=== PATIENT | male | born 1970 | race Caucasian/White ===

== ENCOUNTER 2017-10-18 22:26 | Emergency (ER) | payer BC ==
[2017-10-19] MEDS ORDERED: MORPHINE SULFATE 10 MG/ML INJ IV PRN (00:07)
[2017-10-19] MEDS ORDERED: LIDOCAINE 5% (700 MG) TRANSDERMAL ADH..PATCH TP ONE (00:07)
[2017-10-19] MEDS ORDERED: HYDROMORPHONE HCL INJ/PF 2 MG/ML AMPULE IV ONE ×2 (00:08→02:25)
[2017-10-19] MEDS ORDERED: PROCHLORPERAZINE EDISYLATE INJ 10 MG/2 ML VIAL IV ONE (00:08)
[2017-10-19] MEDS ORDERED: NORMAL SALINE 1000 ML 1,000 ML IV ONE (00:08)
--- NOTE | 2017-10-19 00:43 | ER Document Report ---
ED General - General Chief Complaint: Arm Pain Stated Complaint: NECK/ARM PAIN Time Seen by Provider: 10/18/17 23:30 Notes: Patient is a 47-year-old male with a past medical history of diabetes, hypertension, hyperlipidemia who presents with acute onset of left-sided neck pain radiating to his left upper extremity. Patient states that this started abruptly while he was sitting on the couch and has been constant since that time. He describes it as a severe, constant, stabbing pain to the affected area which starts at the base of his left occiput and extends into the left sternocleidomastoid region and into the left shoulder. He denies any associated chest pain or shortness of breath. No nausea, vomiting or diaphoresis. He notes that he had a brief episode similar to this 1 week ago, was treated with a dose of steroids was unable to complete the course due to causing severe hyperglycemia. Patient reports that that episode was much less intense and resolved much more rapidly. He has not seen his primary doctor regarding today's concerns. Nothing improves or worsens his symptoms. TRAVEL OUTSIDE OF THE [place] IN LAST 30 DAYS: No - Related Data Allergies/Adverse Reactions: allopurinol Allergy (Verified 10/18/17 22:46) Past Medical History - General Information source: Patient - Social History Smoking Status: Never Smoker Frequency of alcohol use: None Drug Abuse: None Lives with: Spouse/Significant other Family History: Reviewed & Not Pertinent Review of Systems - Review of Systems Notes: Constitutional: Negative for fever. HENT: Negative for sore throat. Eyes: Negative for visual changes. Cardiovascular: Negative for chest pain. Respiratory: Negative for shortness of breath. Gastrointestinal: Negative for abdominal pain, vomiting or diarrhea. Genitourinary: Negative for dysuria. Musculoskeletal: Positive for left neck pain and left arm pain Skin: Negative for rash. Neurological: Negative for headaches, weakness or numbness. 10 point ROS negative except as marked above and in HPI. Physical Exam - Vital signs Vitals: Resp Pulse Ox 17 99 10/18/17 23:26 10/18/17 23:26 Interpretation: Tachycardic Notes: PHYSICAL EXAMINATION: GENERAL: Appears uncomfortable but in no acute distress HEAD: Atraumatic, normocephalic. EYES: Pupils equal round and reactive to light, extraocular movements intact, sclera anicteric, conjunctiva are normal. ENT: nares patent, oropharynx clear without exudates. Moist mucous membranes. NECK: Normal range of motion, supple without lymphadenopathy LUNGS: Breath sounds clear to auscultation bilaterally and equal. No wheezes rales or rhonchi. HEART: Regular rate and rhythm without murmurs ABDOMEN: Soft, nontender, normoactive bowel sounds. No guarding, no rebound. No masses appreciated. EXTREMITIES: Normal range of motion, no pitting or edema. No cyanosis. NEUROLOGICAL: Face symmetric. Tongue protrudes midline. Extraocular motions intact. Pupils are 2 mm and equally reactive. Normal speech, normal gait. 5 out of 5 strength in both the distal and proximal upper and lower extremities bilaterally. Sensation is grossly intact throughout. Finger to nose testing normal. Pronator drift normal. PSYCH: Normal mood, normal affect. SKIN: Warm, Dry, normal turgor, no rashes or lesions noted. Course - Re-evaluation Re-evalutation: 10/19/17 00:37 Patient presents with an acute onset of left-sided neck and right arm pain. I am somewhat concerned that this is not musculoskeletal as patient does not report pain is related to movement and does not have exacerbation of his pain with range of motion of the left upper extremity. ACS is on the differential although again patient denies any chest pain or shortness of breath. EKG shows tachycardia but no ischemic changes. No diaphoresis, vomiting, or anginal equivalent symptoms to suggest this diagnosis. He has no cardiac history. PE and aortic dissection likewise seem unlikely given the absence of any shortness of breath or chest pain. A carotid artery dissection would be on the differential given the acute onset of the pain as well as the location of the pain although he does not have any associated neurologic deficits. Will proceed with CT of the neck, labs including a troponin assay, and reassess patient 10/19/17 02:33 CTA of the neck is negative for any evidence of dissection although patient continues to have pain to the neck only. Will repeat a troponin and if this remains normal plan for discharge 10/19/17 04:08 Patient's pain is overall improved. Repeat troponin normal. At this time I suspect likely musculoskeletal origin versus nerve root impingement for the etiology of patient's pain given reassuring evaluation. At this time will discharge with return precautions and follow-up recommendations. Verbal discharge instructions given a the bedside and opportunity for questions given. Medication warnings reviewed. Patient is in agreement with this plan and has verbalized understanding of return precautions and the need for primary care follow-up in the next 24-72 hours. - Vital Signs Vital signs: Temp Pulse Resp BP Pulse Ox 98.6 F 16 173/107 H 95 10/18/17 23:53 10/19/17 03:14 10/19/17 03:14 10/19/17 03:14 - Laboratory Result Diagrams: 10/19/17 00:40 10/19/17 00:40 Laboratory results interpreted by me: 10/19/17 00:40 Glucose 317 H - Diagnostic Test Radiology reviewed: Image reviewed, Reports reviewed Radiology results interpreted by me: 10/19/17 04:09 Chest x-ray: No acute infiltrate or pneumothorax - EKG Interpretation by Me Additional EKG results interpreted by me: 10/19/17 00:43 Sinus tachycardia. Rate 104. No ST elevations or depressions. QTC is 463. Discharge - Discharge Clinical Impression: Neck pain on left side, Left arm pain, Essential hypertension Condition: Good Disposition: HOME, SELF-CARE Additional Instructions: The exact cause of your neck pain is unclear but is likely due to the muscles in your neck. The CT scan of the arteries and veins of your neck is normal. Your EKG and labs do not suggest a heart attack as the cause of your pain. Please apply topical lidocaine to the affected area as needed, take Tylenol 1000 mg every 6 hours, and apply the topical Voltaren gel with which you have been sent home for pain. You may also apply heat to the area. Return if you develop weakness, numbness, vomiting, chest pain, pass out, or have any other symptoms that are worrisome to you. Prescriptions: Diclofenac Sodium [Voltaren] 100 gm TP TID #100 gel..gram. Referrals: GEETA BENSON MD [Primary Care Provider] - Follow up as needed
[2017-10-19 01:03] LABS: ABSOLUTE EOSINOPHILS # (AUTO) 0.1 10^3/uL (0.0-0.6); ABSOLUTE LYMPHOCYTES (AUTO) 1.7 10^3/uL (0.5-4.7); ABSOLUTE MONOCYTES (AUTO) 0.5 10^3/uL (0.1-1.4); ABSOLUTE NEUT (AUTO) 7.5 10^3/uL (1.7-8.2); BASOPHILS % (AUTO) 0.3 % (0-2); EOSINOPHILS % (AUTO) 0.8 % (0-6); HEMOGLOBIN 14.5 g/dL (13.5-17.0); MEAN CORPUSCULAR HEMOGLOBIN 32.2 pg (27.0-33.4); MEAN CORPUSCULAR HGB CONC 35.3 g/dL (32.0-36.0); MEAN CORPUSCULAR VOLUME 91 fl (80-97); MONOCYTES % (AUTO) 5.4 % (3-13); PLATELET COUNT 249 10^3/uL (150-450); RED CELL DISTRIBUTION WIDTH 13.1 % (11.5-14.0); SEGMENTED NEUTROPHILS % (AUTO) 76.5 % (42-78); TOTAL CELLS COUNTED % (AUTO) 100 %; WHITE BLOOD COUNT 9.8 10^3/uL (4.0-10.5)
[2017-10-19 01:21] LABS: ANION GAP 15 (5-19); BLOOD UREA NITROGEN 17 mg/dL (7-20); CALCIUM 10.2 mg/dL (8.4-10.2); CARBON DIOXIDE 26 mmol/L (22-30); CHLORIDE 98 mmol/L (98-107); GLUCOSE 317 mg/dL (75-110); POTASSIUM 4.2 mmol/L (3.6-5.0); SODIUM 139.3 mmol/L (137-145)
--- NOTE | 2017-10-19 02:14 | RADIOLOGY REPORT (SQ) ---
EXAM DESCRIPTION: CHEST SINGLE VIEW CLINICAL HISTORY: sob COMPARISON: None. FINDINGS: Single frontal view of the chest. The cardiomediastinal silhouette has normal size and contour. No consolidation, pneumothorax, or pleural effusion. No displaced rib fractures identified. Upper abdominal soft tissues are unremarkable. Low lung volumes. Leads overlie the chest. IMPRESSION: 1. No acute pulmonary process identified.
--- NOTE | 2017-10-19 02:29 | RADIOLOGY REPORT (SQ) ---
EXAM DESCRIPTION: CT Angiography Neck w/ Contrast CLINICAL HISTORY: Vomiting. Neck pain.; COMPARISON: None available TECHNIQUE: CT of the neck obtained following the uncomplicated intravenous administration of 70 mL Isovue-370. 3-D/MIP reformatted images available. FINDINGS: CTA neck: Right carotid: The origin of the right common carotid artery is widely patent. The right common carotid artery is widely patent without evidence of dissection. There is 0% stenosis at the origin of the right internal carotid artery by NASCET criteria. No evidence of dissection or aneurysm. Left carotid: The origin of the left common carotid artery is widely patent. The left common carotid artery is widely patent without evidence of dissection. There is a 0 % stenosis of the left internal carotid artery by NASCET criteria. No evidence of dissection or aneurysm. The vertebral arteries are patent at their origins. Codominant vertebral arteries. No evidence of flow-limiting stenosis, aneurysm, or dissection. Lung apices demonstrate no pneumothorax. No abnormalities of visualized thyroid gland. No cervical lymphadenopathy. No gross abnormality in the neck soft tissues or orbits. No acute abnormality of the facial bones. The mastoid air cells are well aerated. Mucosal thickening of the left maxillary sinus. Visualized intracranial contents demonstrate no definite abnormalities. DLP: 598.03 mGy-cm IMPRESSION: 1. No evidence of stenosis, dissection, or occlusion of the carotid or vertebral arteries. This exam was performed according to our departmental dose-optimization program, which includes automated exposure control, adjustment of the mA and/or kV according to patient size and/or use of iterative reconstruction technique.
[2017-10-19] MEDS ORDERED: KETOROLAC TROMETHAMINE INJ/PF 30 MG/1 ML SDV IV ONE (02:35)
[2017-10-19 04:20] VITALS: BP 158/96
--- NOTE | 2017-10-19 11:57 | EKG REPORT ---
SEVERITY:- BORDERLINE ECG - SINUS TACHYCARDIA PROBABLE LEFT ATRIAL ABNORMALITY : Confirmed by: Lizzy Kelly MD 19-Oct-2017 11:56:56
--- NOTE | 2017-10-21 19:01 | EKG REPORT ---
SEVERITY:- BORDERLINE ECG - SINUS TACHYCARDIA PROBABLE LEFT ATRIAL ABNORMALITY : Confirmed by: Sabas Henry MD 21-Oct-2017 19:00:26
== END 2017-10-19 04:27 | disposition home or self-care (01) ==
LOC: ER 22:26
DX: M54.2 Cervicalgia (principal); M79.602 Pain in left arm; R51 Headache; M25.512 Pain in left shoulder; I10 Essential (primary) hypertension; R00.0 Tachycardia, unspecified; E11.9 Type 2 diabetes mellitus without complications; Z88.8 Allergy status to other drugs, medicaments and biological substances
CPT/HCPCS: 96376; 99284; 96361; 96374; 96375; 36415; 85025; 80048; 84484; 71045; 70498; 93005; 93010; J1885; J1170; J0780; J7030

== ENCOUNTER → 2018-03-31 | Outpatient (CLI) | payer BC ==
--- NOTE | 2018-04-01 19:43 | XCELERA REPORT ---
[address] [address] Transthoracic Echocardiogram Report Name: CRYSTAL PATTERSON Age: 47 yrs Gender: Male : 1970 Patient Status: Outpatient Patient Location: Study Date: 03/31/2018 08:10 AM Procedure: A two-dimensional transthoracic echocardiogram with color flow and Doppler was performed. The study was technically difficult with many images being suboptimal in quality. Images were not obtained from all of the standard acoustic windows due to the limited scope of the study. Reason For Study: SOB History: Shortness of breath. Ordering Physician: LAW MORGAN Performed By: Melissa Daniel Interpretation Summary A two-dimensional transthoracic echocardiogram with color flow and Doppler was performed. The left ventricle is normal in size. There is normal left ventricular wall thickness. LV EF is 65% Left ventricular systolic function is normal. Doppler measurements suggest normal left ventricular diastolic function The left ventricular wall motion is normal. There is no thrombus. The right ventricle is not well visualized secondary to technical limitations The left atrial size is normal. There is no evidence of mitral valve prolapse. There is no mitral valve stenosis. There is no mitral regurgitation noted. There is no aortic valve stenosis There is no LVOT obstruction. No aortic regurgitation is present. There is no tricuspid stenosis. No tricuspid regurgitation. Unable to calculate RVSP due to insufficient TR jet. There is no pericardial effusion. MMode/2D Measurements & Calculations RVDd: 3.1 cm LVIDd: 5.0 cm FS: 37.2 % Ao root diam: IVSd: 0.99 cm LVIDs: 3.1 cm EDV(Teich): 2.9 cm LVPWd: 0.97 cm 116.3 ml Ao root area: ESV(Teich): 6.8 cm2 38.5 ml EF(Teich): 66.9 % EDV(MOD-sp4): SV(MOD-sp4): 110.5 ml 77.4 ml ESV(MOD-sp4): 33.1 ml EF(MOD-sp4): 70.0 % Doppler Measurements & Calculations MV E max gaby: MV dec slope: Ao V2 max: LV V1 max P.4 cm/sec 253.3 cm/sec2 112.3 cm/sec 4.8 mmHg MV A max gaby: MV dec time: Ao max PG: LV V1 max: 64.2 cm/sec 0.31 sec 5.0 mmHg 109.6 cm/sec MV E/A: 1.2 PA V2 max: 148.2 cm/sec PA max P.8 mmHg Left Ventricle The left ventricle is normal in size. There is normal left ventricular wall thickness. LV EF is 65%. Left ventricular systolic function is normal. Doppler measurements suggest normal left ventricular diastolic function. The left ventricular wall motion is normal. There is no thrombus. Right Ventricle The right ventricle is not well visualized secondary to technical limitations. Atria The right atrium is normal. The left atrial size is normal. Mitral Valve There is no evidence of mitral valve prolapse. There is no vegetation seen on the mitral valve. There is no mitral valve stenosis. There is no mitral regurgitation noted. Aortic Valve There is no aortic valvular vegetation. There is no aortic valve stenosis. There is no LVOT obstruction. No aortic regurgitation is present. Tricuspid Valve There is no tricuspid stenosis. No tricuspid regurgitation. Unable to calculate RVSP due to insufficient TR jet. Pulmonic Valve There is no pulmonic valvular stenosis. There is no pulmonic valvular regurgitation. Great Vessels The aortic root is not well visualized. Effusions There is no pericardial effusion. : LAW MORGAN > Lizzy Kelly
== END ==
LOC: SP 08:04
PROVIDERS: ATTEND Family Medicine Geriatric Medicine
DX: R06.02 Shortness of breath (principal)
CPT/HCPCS: 93306

== ENCOUNTER → 2018-04-06 | Outpatient (CLI) | payer BC ==
[2018-04-06 10:10] LABS: ABSOLUTE EOSINOPHILS # (AUTO) 0.1 10^3/uL (0.0-0.6); ABSOLUTE LYMPHOCYTES (AUTO) 1.9 10^3/uL (0.5-4.7); ABSOLUTE MONOCYTES (AUTO) 0.5 10^3/uL (0.1-1.4); ABSOLUTE NEUT (AUTO) 4.6 10^3/uL (1.7-8.2); BASOPHILS % (AUTO) 0.3 % (0-2); EOSINOPHILS % (AUTO) 1.4 % (0-6); HEMATOCRIT 45.3 % (37.9-51.0); HEMOGLOBIN 15.7 g/dL (13.5-17.0); LYMPHOCYTES % (AUTO) 26.4 % (13-45); MEAN CORPUSCULAR HEMOGLOBIN 31.5 pg (27.0-33.4); MEAN CORPUSCULAR HGB CONC 34.6 g/dL (32.0-36.0); MEAN CORPUSCULAR VOLUME 91 fl (80-97); MONOCYTES % (AUTO) 6.6 % (3-13); PLATELET COUNT 235 10^3/uL (150-450); RED BLOOD COUNT 4.98 10^6/uL (4.35-5.55); RED CELL DISTRIBUTION WIDTH 13.7 % (11.5-14.0); SEGMENTED NEUTROPHILS % (AUTO) 65.3 % (42-78); TOTAL CELLS COUNTED % (AUTO) 100 %; WHITE BLOOD COUNT 7.1 10^3/uL (4.0-10.5)
[2018-04-06 10:32] LABS: ALANINE AMINOTRANSFERASE 37 U/L (21-72); ALBUMIN 4.5 g/dL (3.5-5.0); ALKALINE PHOSPHATASE 78 U/L (38-126); ANION GAP 14 (5-19); ASPARTATE AMINO TRANSFERASE 31 U/L (17-59); BILIRUBIN,DIRECT 0.3 mg/dL (0.0-0.4); BILIRUBIN,TOTAL 0.3 mg/dL (0.2-1.3); BLOOD UREA NITROGEN 20 mg/dL (7-20); CALCIUM 9.8 mg/dL (8.4-10.2); CARBON DIOXIDE 26 mmol/L (22-30); CHLORIDE 107 mmol/L (98-107); CHOLESTEROL 137.36 mg/dL (0-200); GLUCOSE 120 mg/dL (75-110); POTASSIUM 4.3 mmol/L (3.6-5.0); SODIUM 147.2 mmol/L (137-145); TOTAL PROTEIN 7.8 g/dL (6.3-8.2); TRIGLYCERIDES 234 mg/dL (<150); URIC ACID 5.9 mg/dL (3.5-8.5)
[2018-04-06 10:43] LABS: DIRECT LDL 82 mg/dL (<100)
[2018-04-06 10:46] LABS: VLDL CHOLESTEROL 46.8 mg/dL (10-31)
== END ==
LOC: OD 08:36
PROVIDERS: ATTEND Family Medicine Geriatric Medicine
DX: E11.9 Type 2 diabetes mellitus without complications (principal); E78.5 Hyperlipidemia, unspecified; E55.9 Vitamin D deficiency, unspecified; I10 Essential (primary) hypertension; E66.9 Obesity, unspecified
CPT/HCPCS: 36415; 80053; 80061; 82043; 82306; 82570; 83036; 84443; 84550; 85025

== ENCOUNTER → 2018-07-06 | Outpatient (CLI) | payer BC | LOC: OD 12:43 | PROVIDERS: ATTEND Internal Medicine | DX: E11.9 Type 2 diabetes mellitus without complications (principal); E29.1 Testicular hypofunction | CPT/HCPCS: 36415; 83036; 84403 ==

== ENCOUNTER → 2018-10-13 | Outpatient (CLI) | payer BC ==
[2018-10-13 09:44] LABS: CHOLESTEROL 164.46 mg/dL (0-200); TRIGLYCERIDES 260 mg/dL (<150)
[2018-10-13 09:55] LABS: DIRECT LDL 99 mg/dL (<100)
[2018-10-14 12:39] LABS: CREATININE URINE 68.3 mg/dL (Not Estab.); MICROALBUMIN URINE 26.8 ug/mL (Not Estab.)
== END ==
LOC: OD 08:06
PROVIDERS: ATTEND Internal Medicine
DX: E11.8 Type 2 diabetes mellitus with unspecified complications (principal); E78.5 Hyperlipidemia, unspecified
CPT/HCPCS: 36415; 80061; 82043; 82570; 83036; 86677

== ENCOUNTER 2018-11-06 10:19 | Day surgery (SDC) | payer BC ==
[2018-11-06] MEDS ORDERED: PROPOFOL INJ 200 MG/20 ML VIAL IV ONE (10:30)
--- NOTE | 2018-11-06 11:23 | Operative Report ---
Operative Report DATE OF SURGERY: 11/06/18 Operative Report: The risks benefits and alternatives of the procedure explained to the patient in detail and informed consent is obtained.A GIF Olympus video scope was inserted into the patient's mouth and hypopharynx, the esophagus is identified intubated and insufflated, the scope was then advanced through the esophagus stomach and duodenum, retroflexion maneuver is done, the esophagus stomach and first and second portions of the duodenum examined. PREOPERATIVE DIAGNOSIS: Gastritis, dyspepsia POSTOPERATIVE DIAGNOSIS: Gastritis status post biopsy to rule out for Helicobacter pylori. Esophagitis versus Carlson's. Status post biopsy OPERATION: EGD with biopsy SURGEON: EBONY PANTOJA ANESTHESIA: LMAC TISSUE REMOVED OR ALTERED: As noted above. COMPLICATIONS: None. ESTIMATED BLOOD LOSS: None. INTRAOPERATIVE FINDINGS: As noted above. PROCEDURE: Patient tolerated the procedure well. No immediate postprocedure complications are noted. Patient discharged in good condition. Discharge date 11/06/2018. Discharge diet: Regular. Discharge activity: Regular. 2-3-week follow-up to discuss findings. Patient is instructed to call the office or proceed to the emergency room should there be any further proximal questions. I will wait on the pathology.
[2018-11-06 11:59] VITALS: BP 132/80
== END 2018-11-06 11:50 | disposition home or self-care (01) ==
LOC: END 10:19
PROVIDERS: ATTEND Internal Medicine Gastroenterology
DX: K21.0 Gastro-esophageal reflux disease with esophagitis (principal); K29.50 Unspecified chronic gastritis without bleeding; E11.9 Type 2 diabetes mellitus without complications; G47.33 Obstructive sleep apnea (adult) (pediatric); E55.9 Vitamin D deficiency, unspecified; E78.2 Mixed hyperlipidemia; R06.02 Shortness of breath; M1A.9XX1 Chronic gout, unspecified, with tophus (tophi); Z87.891 Personal history of nicotine dependence; Z79.4 Long term (current) use of insulin; Z88.8 Allergy status to other drugs, medicaments and biological substances; Z79.899 Other long term (current) drug therapy; Z09 Encounter for follow-up examination after completed treatment for conditions other than malignant neoplasm; Z86.19 Personal history of other infectious and parasitic diseases
CPT/HCPCS: 43239; 82962; 88342 ×2; 88305 ×2; J2704; 731

== ENCOUNTER → 2018-12-18 | Outpatient (CLI) | payer BC ==
[2018-12-18 09:12] LABS: CHOLESTEROL 143.59 mg/dL (0-200); TRIGLYCERIDES 275 mg/dL (<150)
[2018-12-18 09:22] LABS: DIRECT LDL 87 mg/dL (<100)
== END ==
LOC: OD 07:18
PROVIDERS: ATTEND Internal Medicine
DX: E11.8 Type 2 diabetes mellitus with unspecified complications (principal); E78.5 Hyperlipidemia, unspecified
CPT/HCPCS: 36415; 80061; 83036

== ENCOUNTER → 2019-03-29 | Outpatient (CLI) | payer BC ==
[2019-03-29 09:47] LABS: CHOLESTEROL 159.53 mg/dL (0-200); TRIGLYCERIDES 208 mg/dL (<150)
[2019-03-29 10:00] LABS: DIRECT LDL 102 mg/dL (<100)
[2019-03-29 10:02] LABS: VLDL CHOLESTEROL 41.6 mg/dL (10-31)
== END ==
LOC: OD 07:55
PROVIDERS: ATTEND Internal Medicine
DX: E11.9 Type 2 diabetes mellitus without complications (principal); E78.5 Hyperlipidemia, unspecified
CPT/HCPCS: 36415; 80061; 83036

== ENCOUNTER → 2019-08-03 | Outpatient (CLI) | payer BC ==
[2019-08-03 09:12] LABS: ALBUMIN 4.8 g/dL (3.5-5.0); ALKALINE PHOSPHATASE 88 U/L (38-126); ASPARTATE AMINO TRANSFERASE 32 U/L (17-59); BILIRUBIN,DIRECT 0.1 mg/dL (0.0-0.4); BILIRUBIN,TOTAL 0.4 mg/dL (0.2-1.3); CHOLESTEROL 131.93 mg/dL (0-200); TOTAL PROTEIN 7.9 g/dL (6.3-8.2); TRIGLYCERIDES 218 mg/dL (<150)
[2019-08-03 09:34] LABS: DIRECT LDL 82 mg/dL (<100)
[2019-08-03 09:35] LABS: VLDL CHOLESTEROL 43.6 mg/dL (10-31)
[2019-08-04 10:36] LABS: MICROALBUMIN URINE 43.2 ug/mL (Not Estab.)
== END ==
LOC: OD 07:35
PROVIDERS: ATTEND Internal Medicine
DX: E11.9 Type 2 diabetes mellitus without complications (principal); E03.9 Hypothyroidism, unspecified; E78.5 Hyperlipidemia, unspecified; R94.5 Abnormal results of liver function studies
CPT/HCPCS: 36415; 80061; 80076; 82043; 82570; 83036; 84443

== ENCOUNTER → 2020-03-21 | Outpatient (CLI) | payer BC ==
[2020-03-21 08:43] LABS: ABSOLUTE EOSINOPHILS # (AUTO) 0.1 10^3/uL (0.0-0.6); ABSOLUTE LYMPHOCYTES (AUTO) 1.5 10^3/uL (0.5-4.7); ABSOLUTE MONOCYTES (AUTO) 0.4 10^3/uL (0.1-1.4); ABSOLUTE NEUT (AUTO) 4.2 10^3/uL (1.7-8.2); BASOPHILS % (AUTO) 0.6 % (0-2); EOSINOPHILS % (AUTO) 2.2 % (0-6); HEMOGLOBIN 15.6 g/dL (13.5-17.0); LYMPHOCYTES % (AUTO) 24.6 % (13-45); MEAN CORPUSCULAR HGB CONC 34.8 g/dL (32.0-36.0); MEAN CORPUSCULAR VOLUME 92 fl (80-97); MONOCYTES % (AUTO) 6.4 % (3-13); PLATELET COUNT 209 10^3/uL (150-450); RED BLOOD COUNT 4.88 10^6/uL (4.35-5.55); RED CELL DISTRIBUTION WIDTH 13.6 % (11.5-14.0); SEGMENTED NEUTROPHILS % (AUTO) 66.2 % (42-78); TOTAL CELLS COUNTED % (AUTO) 100 %; WHITE BLOOD COUNT 6.3 10^3/uL (4.0-10.5)
[2020-03-21 09:01] LABS: ALBUMIN 4.5 g/dL (3.5-5.0); ALKALINE PHOSPHATASE 86 U/L (38-126); ANION GAP 10 (5-19); ASPARTATE AMINO TRANSFERASE 39 U/L (17-59); BILIRUBIN,TOTAL 0.4 mg/dL (0.2-1.3); BLOOD UREA NITROGEN 17 mg/dL (7-20); CALCIUM 9.7 mg/dL (8.4-10.2); CARBON DIOXIDE 25 mmol/L (22-30); CHLORIDE 108 mmol/L (98-107); CHOLESTEROL 147.63 mg/dL (0-200); GLUCOSE 172 mg/dL (75-110); POTASSIUM 4.2 mmol/L (3.6-5.0); TOTAL PROTEIN 7.4 g/dL (6.3-8.2); TRIGLYCERIDES 255 mg/dL (<150); URIC ACID 5.3 mg/dL (3.5-8.5)
[2020-03-21 09:12] LABS: DIRECT LDL 91 mg/dL (<100)
[2020-03-22 10:36] LABS: CREATININE URINE 61.7 mg/dL (Not Estab.); MICROALBUMIN URINE 35.8 ug/mL (Not Estab.)
== END ==
LOC: OD 07:30
PROVIDERS: ATTEND Family Medicine Geriatric Medicine
DX: E11.9 Type 2 diabetes mellitus without complications (principal); E78.5 Hyperlipidemia, unspecified; M10.9 Gout, unspecified; I10 Essential (primary) hypertension; Z79.899 Other long term (current) drug therapy
CPT/HCPCS: 36415; 80053; 80061; 82043; 82570; 83036; 84550; 85025